=== PATIENT | male | born 1960 | race Caucasian/White ===

== ENCOUNTER 2021-09-26 05:56 | Day surgery (SDC) | payer SELFPAY ==
--- NOTE | 2021-09-22 11:36 | RAD REPORT ---
EXAM DESCRIPTION: RAD - Chest Pa And Lat (2 Views) - 09/22/2021 11:31 am CLINICAL HISTORY: PRE OP Chest pain. COMPARISON: No comparisons FINDINGS: The lungs are clear. The heart is normal in size. No displaced fractures. IMPRESSION: No acute or concerning finding suspected.
[2021-09-22 11:37] LABS: Protime INR 1.01
[2021-09-22 11:39] LABS: Absolute Lymphocytes (CBC) 2.4 K/uL (0.7-4.9); Basophils % 0.5 % (0-1.3); Hematocrit 48.7 % (39.6-49.0); Lymphocytes % 26.1 % (15.3-44.8); MPV 8.9 fL (7.6-11.3); RBC Red Blood Cell Count 5.49 M/uL (4.33-5.43)
[2021-09-22 11:46] LABS: Potassium 4.7 mmol/L (3.5-5.1)
[2021-09-26] MEDS ORDERED: CEFAZOLIN/SWI 2gm 0 GM/0 ML SYR ONE (06:11)
[2021-09-26] MEDS ORDERED: Ringers Lactate 0 ML IV ONE (06:11)
[2021-09-26] MEDS ORDERED: FENTANYL CITR 100 MCG/2 ML ONE (06:51)
[2021-09-26] MEDS ORDERED: MIDAZOLAM HCL 2 MG/2 ML INJ ONE (06:51)
[2021-09-26] MEDS ORDERED: dexAMETHasone 10 MG/ML VIAL ONE (06:51)
[2021-09-26] MEDS ORDERED: LIDOCAINE 1% MPF 5 ML VIAL ONE (06:51)
[2021-09-26] MEDS ORDERED: ROPLVACAINE HCL 0 ML ONE (06:52)
[2021-09-26] MEDS ORDERED: CELECOXIB 100 MG CAPSULE ONE (07:05)
[2021-09-26] MEDS ORDERED: ACETAMINOPHEN 500 MG TAB ONE (07:05)
[2021-09-26] MEDS ORDERED: CELECOXIB 100 MG CAPSULE PO ONE (07:05)
[2021-09-26] MEDS ORDERED: ACETAMINOPHEN 500 MG TAB PO ONE (07:05)
[2021-09-26 07:25] VITALS: BP 114/72; TEMP 97.8; O2SAT 100
[2021-09-26] MEDS ORDERED: dexAMETHasone 4 MG/ML VIAL ONE (07:32)
[2021-09-26] MEDS ORDERED: LIDOCAINE 2% MPF 5 ML VIAL ONE (07:32)
[2021-09-26] MEDS ORDERED: propofoL 200 MG/20 ML VIAL IV ONE (07:32)
[2021-09-26] MEDS ORDERED: KETOROLAC 30 MG/ML INJ ONE (07:32)
[2021-09-26] MEDS ORDERED: ROCURONIUM 50 MG/5 ML VIAL IV ONE (07:32)
[2021-09-26] MEDS ORDERED: ONDANSETRON 4 MG/2 ML VIAL ONE (07:32)
[2021-09-26] MEDS ORDERED: EPINEPHRINE/PF 1 MG/ML AMP ONE (07:49)
== END 2021-09-26 09:45 | disposition home or self-care (01) ==
LOC: OR 05:56
PROVIDERS: ATTEND Orthopaedic Surgery Sports Medicine
DX: S46.011A Strain of muscle(s) and tendon(s) of the rotator cuff of right shoulder, initial encounter (principal); Z20.822 Contact with and (suspected) exposure to COVID-19; Z53.8 Procedure and treatment not carried out for other reasons
CPT/HCPCS: 36415; 71046; 80048; 85025; 85610; 85730; 93005; J0171; J0690; J1100; J2250; J2405; J2704; J2795; J3010; J7120; U0002

== ENCOUNTER 2021-10-01 05:58 | Day surgery (SDC) | payer SELFPAY ==
[2021-10-01] MEDS ORDERED: CEFAZOLIN/SWI 2gm 2 GM/20 ML SYR ONE (06:12)
[2021-10-01] MEDS ORDERED: Ringers Lactate 1,000 ML IV ONE ×2 (06:12→09:15)
[2021-10-01] MEDS ORDERED: NS 0.9% VIAL 10 ML ONE (06:29)
[2021-10-01] MEDS ORDERED: dexAMETHasone 10 MG/ML VIAL ONE (06:29)
[2021-10-01] MEDS ORDERED: FENTANYL CITR 100 MCG/2 ML ONE (06:29)
[2021-10-01] MEDS ORDERED: LIDOCAINE 1% MPF 5 ML VIAL ONE (06:29)
[2021-10-01] MEDS ORDERED: MIDAZOLAM HCL 2 MG/2 ML INJ ONE (06:30)
[2021-10-01] MEDS ORDERED: ROPLVACAINE HCL 40 ML ONE (06:30)
[2021-10-01] MEDS ORDERED: LIDOCAINE 2% MPF 5 ML VIAL ONE (07:07)
[2021-10-01] MEDS ORDERED: propofoL 200 MG/20 ML VIAL IV ONE (07:07)
[2021-10-01] MEDS ORDERED: ROCURONIUM 50 MG/5 ML VIAL IV ONE (07:07)
[2021-10-01] MEDS ORDERED: EPINEPHRINE/PF 1 MG/ML AMP ONE (07:07)
[2021-10-01] MEDS ORDERED: KETOROLAC 30 MG/ML INJ ONE (09:41)
--- NOTE | 2021-10-01 10:06 | P.BOP ---
Preoperative diagnosis: right shoulder rotator cuff tear, SLAP tear, impingement syndrome Postoperative diagnosis: same Primary procedure: right shoulder arthroscopic rotator cuff repair Secondary procedure: right shoulder arthroscopic SLAP debridement Other procedure(s): right shoulder arthroscopic subacromial decompression Estimated blood loss: 5 cc Specimen: none Findings: see dictation Anesthesia: General Complications: None Implants: 1- 5.5 mm Arthrex corkscrew, 2- 4.75 mm Arthrex swivelocks Fluids & blood products: per anesthesia record Transferred to: Recovery Room Condition: Good
--- NOTE | 2021-10-01 10:45 | RAD REPORT ---
EXAM DESCRIPTION: RAD - Shoulder 1 View - 10/01/2021 10:35 am CLINICAL HISTORY: S/P R ROTATOR CUFF REPAIR COMPARISON: No comparisonsNo comparisons FINDINGS/IMPRESSION: Single view of the right shoulder show immediate postoperative changes in the s oft tissue. No fracture is seen. Soft tissue swelling noted.
[2021-10-01] MEDS ORDERED: HYDROCODONE/APAP 7.5/325 MG TAB ONE (11:05)
[2021-10-01] MEDS ORDERED: ONDANSETRON 4 MG/2 ML VIAL ONE (11:08)
[2021-10-01 13:41] VITALS: BP 136/98; TEMP 97.3; O2SAT 97
--- NOTE | 2021-10-02 14:29 | OP ---
Date of Procedure: 10/01/2021 Surgeon: Primitivo Agarwal MD Preoperative Diagnoses: 1.Right shoulder rotator cuff tear. 2.Right shoulder impingement syndrome. 3.Right shoulder bicipital tenosynovitis. Postoperative Diagnoses: 1.Right shoulder rotator cuff tear. 2.Right shoulder impingement syndrome. 3.Right shoulder SLAP tear. Procedure Performed: 1.Right shoulder arthroscopic rotator cuff repair. 2.Right shoulder arthroscopic SLAP tear debridement. 3.Right shoulder arthroscopic subacromial decompression. Anesthesia: General endotracheal. Fluids: Per Anesthesia record. Estimated Blood Loss: 5 cc. Complications: None. Implants: 1.One 5.5 mm Arthrex corkscrew. 2.Two 4.75 mm Arthrex SwiveLock. Indication For Procedure: Niles is a 60-year-old male who presented to my clinic with signs, symptoms , and MRI findings consistent with a right shoulder full-thickness rotator cuff tear. I discussed wi th the patient risks and benefits associated with operative and nonoperative treatment. He expressed understanding and elected to proceed with operative treatment. Description Of Procedure: After informed consent was obtained, the patient was identified in the pre operative holding area. The right upper extremity was marked. The patient then was brought to the P ACU where he underwent a right-sided interscalene block performed by Anesthesia. The patient was bro ught back to the operating room, transferred to the operative table in supine fashion, placed under g eneral endotracheal anesthesia. He was then placed in a beach chair position with his extremities we ll padded. The right upper extremity was then prepped and draped in usual sterile fashion. A time-o ut was initiated. The correct patient and procedure were performed and identified. The patient did receive preoperative prophylactic antibiotics. Via the posterior portal position, a spinal needle wa s introduced in the glenohumeral joint and the shoulder was injected with 30 cc of normal saline to d istend the capsule. A stab incision was made posteriorly and a posterior portal was created. Arthro scope was brought in via the posterior portal position and diagnostic arthroscopy was performed. Und er direct visualization, an anterior portal and cannula were created. The patient was noted to have a type 1 SLAP tear, which was debrided using the arthroscopic shaver. There were no significant inst ability of the superior labrum or anterior posterior labrum, which were stable to probe. There was n o significant fraying or tenosynovitis of the bicipital tendon both intra-articular and extra-articul ar. The patient did notice some hyperemia of his capsule anteriorly, which may have been consistent with early adhesive capsulitis. Some of this tissue was debrided using a radiofrequency ablator and arthroscopic shaver. Subscapularis was found to be stable and intact to probe. There were no loose bodies within the axillary pouch. The patient was noted to have a full-thickness tear of the anterio r aspect of the supraspinatus. A lateral portal was created and an arthroscopic shaver was then used to debride the anterior aspect of the greater tuberosity. The rotator cuff tear was noted to create a bleeding bony bed. The undersurface of the rotator cuff tear was also debrided using the arthros opic shaver to remove any unhealthy tissue. The arthroscope was then brought in the subacromial spac e. A prompt subacromial bursectomy was performed using arthroscopic shaver. The patient was noted t o have an anterior full-thickness tear, which was retracted. The humeral head was reducible to the g reater tuberosity. A lateral stab incision was made just lateral to the acromion. A punch was then placed, was then used to place a 5.5 mm double loaded Arthrex corkscrew. Sutures were then passed th rough the rotator cuff tear in anterior-posterior fashion, tied in a horizontal mattress fashion. Th e suture lines were then crisscrossed and 2 lateral Arthrex SwiveLock anchors were placed to increase surface area of the reduction onto the greater tuberosity of the rotator cuff tendon. The remaining suture limbs were then cut. There was some significant fraying of a coracoacromial ligament as well as some undersurface spurring of the acromion and acromioplasty was performed using a radiofrequency ablator and an arthroscopic bur. Arthroscopic instruments were then removed without complication. Wounds were then irrigated thoroughly with normal saline. Subcutaneous tissue was approximated using a 2-0 Vicryl. Portals were approximated using a 3-0 Monocryl. Sterile dressings were applied. Gisele ulder immobilizer was placed. The patient was awakened and transferred to PACU in stable condition. Postoperative Plan: The patient will be nonweightbearing in a shoulder immobilizer for 6 weeks. We will follow the medium rotator cuff repair protocol 4 weeks postoperatively. ALANNAH/DANIELLE Voice ID: [id number] Report ID: [id number]
== END 2021-10-01 11:31 | disposition home or self-care (01) ==
LOC: OR 05:58
PROVIDERS: ATTEND Orthopaedic Surgery Sports Medicine
PROC: 0RNJ4ZZ Release Right Shoulder Joint, Percutaneous Endoscopic Approach (ICD-10-PCS; 2021-10-01)
PROC: 0RBJ4ZZ Excision of Right Shoulder Joint, Percutaneous Endoscopic Approach (ICD-10-PCS; 2021-10-01)
PROC: 0LM14ZZ Reattachment of Right Shoulder Tendon, Percutaneous Endoscopic Approach (ICD-10-PCS; principal; 2021-10-01 07:30)
DX: S46.011A Strain of muscle(s) and tendon(s) of the rotator cuff of right shoulder, initial encounter (principal); S43.431A Superior glenoid labrum lesion of right shoulder, initial encounter; M75.41 Impingement syndrome of right shoulder; M75.21 Bicipital tendinitis, right shoulder; Z20.822 Contact with and (suspected) exposure to COVID-19; Z87.891 Personal history of nicotine dependence; Z82.62 Family history of osteoporosis; Z82.49 Family history of ischemic heart disease and other diseases of the circulatory system
CPT/HCPCS: 73020; J0171; J0690; J1100; J2250; J2405; J2704; J2795; J3010; J7120